=== PATIENT | male | born 1960 | race Caucasian/White ===

== ENCOUNTER 2018-04-01 11:56 | Inpatient (IN) | payer MEDICAID, OTHER ==
[~2018-04-01] VITALS: Ht 653.8 cm; Wt 77.8 kg
[~2018-04-01 11:56] MED LIST: IBUP-1984 PO; NO HOME MEDS
[2018-04-01] MEDS ORDERED: normal saline 1000ml 1,000 ML IV ONE (12:10)
[2018-04-01] MEDS ORDERED: famotidine 20mg tablet PO ONE (12:10)
[2018-04-01] MEDS ORDERED: LIDOcaine Viscous 15ml cup PO ONE (12:10)
[2018-04-01] MEDS ORDERED: ondansetron 4mg rapidly disintigrating tab PO ONE (12:10)
[2018-04-01] MEDS ORDERED: pantoprazole 40mg Tablet.DR PO ONE (12:10)
[2018-04-01] MEDS ORDERED: mag hydrox/Alum hydrox/simeth 30ml oral suspension PO ONE (12:10)
[2018-04-01 12:32] LABS: BASOPHILS % (AUTO) 0.5 % (0-1); EOSINOPHILS % (AUTO) 0.3 % (0-6); HEMATOCRIT 41.4 % (42.0-52.0); HEMOGLOBIN 14.2 g/dl (14.0-17.9); LYMPHOCYTES # (AUTO) 2.5 X10'3 (1.1-4.8); LYMPHOCYTES % (AUTO) 29.1 % (21-51); MEAN CORPUSCULAR HEMOGLOBIN 33.6 PG (27.0-31.0); MEAN CORPUSCULAR HGB CONC 34.4 % (33.0-36.5); MEAN CORPUSCULAR VOLUME 97.7 FL (78-98); MEAN PLATELET VOLUME 8.6 FL (7.4-10.4); MONOCYTES # (AUTO) 0.7 X10'3 (0-0.9); MONOCYTES % (AUTO) 8.2 % (2-12); NEUTROPHILS # (AUTO) 5.3 X10'3 (1.8-7.7); NEUTROPHILS % (AUTO) 61.9 % (42-75); PLATELET COUNT 219 X10'3 (140-440); RED BLOOD COUNT 4.23 X10'6 (4.70-6.10); RED CELL DISTRIBUTION WIDTH 14.3 % (11.5-14.5); WHITE BLOOD COUNT 8.6 X10'3 (4.5-11.0)
[2018-04-01 12:45] LABS: INR 1.1 INR; PARTIAL THROMBOPLASTIN TIME 26 SECONDS (22-32); PROTHROMBIN TIME 11.7 SECONDS (9.0-12.0)
[2018-04-01 12:50] LABS: ALANINE AMINOTRANSFERASE 71 U/L (12-78); ALBUMIN/GLOBULIN RATIO 0.9 (1.1-1.5); ALKALINE PHOSPHATASE 139 IU/L (46-116); ANION GAP 7 (8-16); ASPARTATE AMINO TRANSFERASE 47 U/L (10-37); BILIRUBIN,TOTAL 1.3 MG/DL (0.1-1.0); BLOOD UREA NITROGEN 22 MG/DL (7-18); BUN/CREATININE RATIO 17.2 (5.4-32.0); CALCIUM 8.4 MG/DL (8.5-10.1); CHLORIDE 106 MMOL/L (99-107); CREATININE 1.28 MG/DL (0.60-1.10); GLUCOSE 93 MG/DL (70-104); POTASSIUM 4.6 MMOL/L (3.5-5.1); SODIUM 139 MMOL/L (135-145); TOTAL CARBON DIOXIDE 26.2 MMOL/L (24-32); TOTAL PROTEIN 6.5 G/DL (6.4-8.2); eGFR 58 ML/MIN
[2018-04-01] MEDS ORDERED: iohexol 350MG/ML 100ml bottle IV ONE (13:48)
[2018-04-01] MEDS ORDERED: heparin 10,000 units/1 ML INJ IV ONE ×4 (14:45→15:40)
[2018-04-01] MEDS ORDERED: heparin 10,000 units/1 ML INJ IV PRN ×2 (14:45→15:20)
[2018-04-01] MEDS ORDERED: furosemide 10 MG/1 ML 10ml inj IV ONE (14:45)
[2018-04-01] MEDS ORDERED: aspirin 325mg tablet PO ONE (14:45)
[2018-04-01 15:07] LABS: C-REACTIVE PROTEIN 1.76 MG/DL (0.0-0.5)
[2018-04-01 15:15] LABS: BASOPHILS # (AUTO) 0.1 X10'3 (0-0.2); BASOPHILS % (AUTO) 0.9 % (0-1); EOSINOPHILS # (AUTO) 0.1 X10'3 (0-0.9); EOSINOPHILS % (AUTO) 0.6 % (0-6); HEMATOCRIT 42.5 % (42.0-52.0); HEMOGLOBIN 14.4 g/dl (14.0-17.9); LYMPHOCYTES # (AUTO) 2.6 X10'3 (1.1-4.8); MEAN CORPUSCULAR HEMOGLOBIN 33.4 PG (27.0-31.0); MEAN CORPUSCULAR HGB CONC 33.8 % (33.0-36.5); MEAN CORPUSCULAR VOLUME 98.7 FL (78-98); MEAN PLATELET VOLUME 8.4 FL (7.4-10.4); MONOCYTES # (AUTO) 0.7 X10'3 (0-0.9); MONOCYTES % (AUTO) 8.5 % (2-12); NEUTROPHILS # (AUTO) 4.9 X10'3 (1.8-7.7); PLATELET COUNT 212 X10'3 (140-440); RED CELL DISTRIBUTION WIDTH 14.2 % (11.5-14.5); WHITE BLOOD COUNT 8.3 X10'3 (4.5-11.0)
[2018-04-01] MEDS ORDERED: HYDROcodone/acetaminophen 5mg/325mg tablet PO PRN (15:20)
[2018-04-01] MEDS ORDERED: acetaminophen 325mg tablet PO PRN (15:20)
[2018-04-01] MEDS ORDERED: HYDROcodone/acetaminophen 10/325mg tab PO PRN (15:20)
[2018-04-01] MEDS ORDERED: bisacodyl 10mg suppository rectal RC PRN (15:20)
[2018-04-01] MEDS ORDERED: HYDROmorphone inj. 0.5 MG/0.5 ML DISP.SYRIN IV PRN ×2 (15:20)
[2018-04-01] MEDS ORDERED: diphenhydrAMINE 50 mg/ml inj IV PRN (15:20)
[2018-04-01] MEDS ORDERED: ondansetron/PF 4mg/2ml inj IV PRN (15:20)
[2018-04-01] MEDS ORDERED: morphine 4 MG/ML inj SYRINge IV PRN ×2 (15:20)
[2018-04-01] MEDS ORDERED: acetaminophen 650mg rectal suppository RC PRN (15:20)
[2018-04-01] MEDS ORDERED: metoclopramide 5 mg/ml inj IV PRN (15:20)
[2018-04-01] MEDS ORDERED: diphenhydrAMINE 25mg capsule PO PRN (15:20)
[2018-04-01] MEDS ORDERED: magnesium hydroxide 30ml (MOM) UD suspension PO PRN (15:20)
[2018-04-01] MEDS ORDERED: mag hydrox/Alum hydrox/simeth 30ml oral suspension PO PRN (15:20)
[2018-04-01] MEDS ORDERED: atenolol 25mg tablet PO SCH (15:40)
[2018-04-01] MEDS ORDERED: atorvastatin 20mg tablet PO SCH (15:40)
[2018-04-01] MEDS ORDERED: lisinopril 10 MG tablet PO SCH (15:40)
[2018-04-01 16:11] LABS: ABG BASE EXCESS -5.2 mmol/L (-2.0-3.0); ABG HCO3 17.4 mmol/L (22.0-26.0); ABG OXYGEN SATURATION 94.9 % (95-98); ABG PCO2 (T) 26.9 mmHg (35.0-48.0); ABG PH (T) 7.428 (7.350-7.450); ABG PO2 (T) 73.9 mmHg (83-108); ALLEN'S TEST Positive; FCOHb 1.1 % (0.5-1.5); FMetHb 0.3 % (0.3-1.12); FO2Hb 93.6 % (94-100); TOTAL HEMOGLOBIN 14.9 G/dl (14.0-18.0)
[2018-04-01 16:12] LABS: HEMOGLOBIN A1C 6.2 % (4.5-6.2)
[2018-04-01 16:21] LABS: LIPASE 71 U/L (73-393); PHOSPHORUS 3.2 MG/DL (2.3-4.5)
[2018-04-01 17:03] LABS: MAGNESIUM 1.8 MG/DL (1.5-2.4)
[2018-04-01] MEDS: normal saline 1000ml 1,000 ML IV SCH (17:41)
[2018-04-01 17:47] VITALS: BP 115/77
[2018-04-01 19:00] VITALS: BP 103/51
[2018-04-01] MEDS: docusate sod 100mg capsule PO SCH (20:00)
[2018-04-01 21:29] LABS: CLARITY,URINE CLEAR (Clear); COLOR,URINE AMBER (Yellow); GLUCOSE, URINE NEGATIVE (Neg); KETONES,URINE NEGATIVE (Neg); LEUKOCYTE ESTERASE ,URINE NEGATIVE (Neg); NITRITES, URINE NEGATIVE (Neg); OCCULT BLOOD,URINE NEGATIVE (Neg); PROTEIN,URINE NEGATIVE (Neg)
[2018-04-01 21:34] LABS: UA COLLECTION TYPE CLN CATCH MIDSTREAM
[2018-04-01 23:00] VITALS: BP 102/74
[2018-04-02] VITALS (9 sets, daily range): BP systolic 86–118; BP diastolic 57–78
[2018-04-02] MEDS: temazepam 15mg capsule PO PRN (00:28)
[2018-04-02 01:12] LABS: ALANINE AMINOTRANSFERASE 196 U/L (12-78); ALBUMIN 2.8 G/DL (3.4-5.0); ALBUMIN/GLOBULIN RATIO 0.9 (1.1-1.5); ALKALINE PHOSPHATASE 155 IU/L (46-116); ANION GAP 9 (8-16); ASPARTATE AMINO TRANSFERASE 204 U/L (10-37); BILIRUBIN,TOTAL 1.9 MG/DL (0.1-1.0); BLOOD UREA NITROGEN 26 MG/DL (7-18); BUN/CREATININE RATIO 17.6 (5.4-32.0); CALCIUM 8.2 MG/DL (8.5-10.1); CHLORIDE 103 MMOL/L (99-107); CREATININE 1.48 MG/DL (0.60-1.10); GLUCOSE 118 MG/DL (70-104); POTASSIUM 4.9 MMOL/L (3.5-5.1); SODIUM 134 MMOL/L (135-145); TOTAL CARBON DIOXIDE 22.4 MMOL/L (24-32); TOTAL PROTEIN 5.9 G/DL (6.4-8.2); eGFR 49 ML/MIN
[2018-04-02 01:15] LABS: CHOL/HDL RATIO 2.9 (0.00-4.99); CHOLESTEROL 101 MG/DL (0-200); HDL CHOLESTEROL 35 MG/DL (35-60); LDL CHOLESTEROL 60 MG/DL (50-100); TRIGLYCERIDES 42 MG/DL (20-135)
[2018-04-02 01:51] LABS: URINE AMPHETAMINE SCREEN POSITIVE (Neg); URINE BARBITUATE SCREEN NEGATIVE (Neg); URINE BENZODIAZEPINES SCREEN NEGATIVE (Neg); URINE CANNABINOID SCREEN POSITIVE (Neg); URINE COCAINE SCREEN NEGATIVE (Neg); URINE METHADONE SCREEN NEGATIVE (Neg); URINE OPIATE SCREEN NEGATIVE (Neg); URINE PHENCYCLIDINE SCREEN NEGATIVE (Neg)
[2018-04-02 04:17] LABS: BASOPHILS # (AUTO) 0.2 X10'3 (0-0.2); BASOPHILS % (AUTO) 1.8 % (0-1); EOSINOPHILS # (AUTO) 0.1 X10'3 (0-0.9); EOSINOPHILS % (AUTO) 0.5 % (0-6); HEMATOCRIT 46.5 % (42.0-52.0); HEMOGLOBIN 15.7 g/dl (14.0-17.9); LYMPHOCYTES # (AUTO) 3.1 X10'3 (1.1-4.8); LYMPHOCYTES % (AUTO) 30.9 % (21-51); MEAN CORPUSCULAR HEMOGLOBIN 33.5 PG (27.0-31.0); MEAN CORPUSCULAR HGB CONC 33.8 % (33.0-36.5); MEAN CORPUSCULAR VOLUME 98.9 FL (78-98); MONOCYTES % (AUTO) 9.5 % (2-12); NEUTROPHILS # (AUTO) 5.8 X10'3 (1.8-7.7); NEUTROPHILS % (AUTO) 57.3 % (42-75); PLATELET COUNT 227 X10'3 (140-440); RED CELL DISTRIBUTION WIDTH 14.6 % (11.5-14.5); WHITE BLOOD COUNT 10.2 X10'3 (4.5-11.0)
[2018-04-02] MEDS: docusate sod 100mg capsule PO SCH (07:39)
[2018-04-02] MEDS: carVEDilol 3.125mg tablet PO SCH ×2 (07:39→20:00)
[2018-04-02] MEDS: pantoprazole 40 MG vial IV SCH (07:40)
[2018-04-02] MEDS: aspirin 81mg tab.chew PO SCH (07:52)
[2018-04-02] MEDS ORDERED: furosemide 40mg/4ml inj IV SCH (08:00)
[2018-04-02 08:21] LABS: MAGNESIUM 1.9 MG/DL (1.5-2.4)
[2018-04-02] MEDS ORDERED: magnesium 4gm in 100ml NS 100 ML IV ONE (09:55)
[2018-04-02] MEDS: amiodarone 200mg tablet PO SCH ×2 (10:00→20:35)
[2018-04-02] MEDS: furosemide 20 MG/2 ML vial IV SCH (20:00)
[2018-04-02] MEDS: lisinopril 2.5mg tablet PO SCH (20:47)
[2018-04-03] VITALS (11 sets, daily range): BP systolic 90–156; BP diastolic 63–87
[2018-04-03 04:31] LABS: BASOPHILS % (AUTO) 0.5 % (0-1); EOSINOPHILS # (AUTO) 0.1 X10'3 (0-0.9); HEMATOCRIT 44.4 % (42.0-52.0); HEMOGLOBIN 15.1 g/dl (14.0-17.9); LYMPHOCYTES # (AUTO) 2.6 X10'3 (1.1-4.8); MEAN CORPUSCULAR HEMOGLOBIN 33.4 PG (27.0-31.0); MEAN CORPUSCULAR HGB CONC 33.9 % (33.0-36.5); MEAN CORPUSCULAR VOLUME 98.4 FL (78-98); MEAN PLATELET VOLUME 9.1 FL (7.4-10.4); MONOCYTES # (AUTO) 0.9 X10'3 (0-0.9); MONOCYTES % (AUTO) 8.4 % (2-12); NEUTROPHILS # (AUTO) 6.6 X10'3 (1.8-7.7); NEUTROPHILS % (AUTO) 65.1 % (42-75); PLATELET COUNT 213 X10'3 (140-440); RED BLOOD COUNT 4.52 X10'6 (4.70-6.10); RED CELL DISTRIBUTION WIDTH 14.5 % (11.5-14.5); WHITE BLOOD COUNT 10.2 X10'3 (4.5-11.0)
[2018-04-03 04:55] LABS: ALANINE AMINOTRANSFERASE 662 U/L (12-78); ALKALINE PHOSPHATASE 164 IU/L (46-116); ANION GAP 11 (8-16); ASPARTATE AMINO TRANSFERASE 628 U/L (10-37); BILIRUBIN,TOTAL 1.4 MG/DL (0.1-1.0); BLOOD UREA NITROGEN 35 MG/DL (7-18); BUN/CREATININE RATIO 20.3 (5.4-32.0); CALCIUM 8.5 MG/DL (8.5-10.1); CHLORIDE 103 MMOL/L (99-107); CREATININE 1.72 MG/DL (0.60-1.10); GLUCOSE 114 MG/DL (70-104); MAGNESIUM 2.2 MG/DL (1.5-2.4); POTASSIUM 4.6 MMOL/L (3.5-5.1); SODIUM 137 MMOL/L (135-145); TOTAL CARBON DIOXIDE 23.2 MMOL/L (24-32); TROPONIN I 0.11 NG/ML (0.0-0.05); eGFR 41 ML/MIN
[2018-04-03] MEDS: pantoprazole 40 MG vial IV SCH (07:52)
[2018-04-03] MEDS: carVEDilol 3.125mg tablet PO SCH ×2 (07:58→20:00)
[2018-04-03] MEDS: amiodarone 200mg tablet PO SCH ×2 (07:58→21:00)
[2018-04-03] MEDS: aspirin 81mg tab.chew PO SCH (07:58)
[2018-04-03] MEDS: furosemide 20 MG/2 ML vial IV SCH ×2 (08:00→16:21)
[2018-04-03] MEDS ORDERED: HYDROmorphone 1 mg/ml syringe IV PRN (08:10)
[2018-04-03] MEDS ORDERED: naproxen sodium 220mg tablet PO PRN (08:10)
[2018-04-03] MEDS: normal saline 1000ml 1,000 ML IV SCH (15:18)
[2018-04-03] MEDS ORDERED: ipratropium/albuterol 3ml nebule NEB PRN (15:30)
[2018-04-03] MEDS: CefTRIAXone/D5W-Rocephin 1gm 50 ML IV SCH (16:18)
[2018-04-03] MEDS: LORazepam 0.5 MG tablet PO PRN (16:26)
[2018-04-03] MEDS: ipratropium/albuterol 3ml nebule NEB SCH ×2 (19:56→23:00)
[2018-04-03] MEDS: apixaban 5mg tablet PO SCH (21:00)
[2018-04-03] MEDS: lisinopril 2.5mg tablet PO SCH (21:00)
[2018-04-04] VITALS (7 sets, daily range): BP systolic 92–113; BP diastolic 56–76
[2018-04-04 06:19] LABS: BASOPHILS # (AUTO) 0.1 X10'3 (0-0.2); BASOPHILS % (AUTO) 0.5 % (0-1); EOSINOPHILS # (AUTO) 0.2 X10'3 (0-0.9); EOSINOPHILS % (AUTO) 1.6 % (0-6); HEMATOCRIT 42.4 % (42.0-52.0); HEMOGLOBIN 14.3 g/dl (14.0-17.9); LYMPHOCYTES # (AUTO) 2.7 X10'3 (1.1-4.8); MEAN CORPUSCULAR HEMOGLOBIN 33.3 PG (27.0-31.0); MEAN CORPUSCULAR HGB CONC 33.6 % (33.0-36.5); MEAN PLATELET VOLUME 9.1 FL (7.4-10.4); MONOCYTES # (AUTO) 1.1 X10'3 (0-0.9); MONOCYTES % (AUTO) 10.7 % (2-12); NEUTROPHILS # (AUTO) 6.3 X10'3 (1.8-7.7); NEUTROPHILS % (AUTO) 61.2 % (42-75); PLATELET COUNT 206 X10'3 (140-440); RED BLOOD COUNT 4.28 X10'6 (4.70-6.10); RED CELL DISTRIBUTION WIDTH 14.3 % (11.5-14.5); WHITE BLOOD COUNT 10.2 X10'3 (4.5-11.0)
[2018-04-04 06:40] LABS: ALANINE AMINOTRANSFERASE 485 U/L (12-78); ALBUMIN 2.7 G/DL (3.4-5.0); ALBUMIN/GLOBULIN RATIO 0.9 (1.1-1.5); ALKALINE PHOSPHATASE 168 IU/L (46-116); ANION GAP 10 (8-16); ASPARTATE AMINO TRANSFERASE 257 U/L (10-37); BILIRUBIN,TOTAL 0.9 MG/DL (0.1-1.0); BLOOD UREA NITROGEN 36 MG/DL (7-18); CALCIUM 8.1 MG/DL (8.5-10.1); CHLORIDE 102 MMOL/L (99-107); CREATININE 1.89 MG/DL (0.60-1.10); GLUCOSE 139 MG/DL (70-104); POTASSIUM 4.4 MMOL/L (3.5-5.1); SODIUM 137 MMOL/L (135-145); TOTAL CARBON DIOXIDE 25.5 MMOL/L (24-32); TOTAL PROTEIN 5.7 G/DL (6.4-8.2); eGFR 37 ML/MIN
[2018-04-04] MEDS: ipratropium/albuterol 3ml nebule NEB SCH ×6 (07:01→23:00)
[2018-04-04 07:41] LABS: HBSAG SCREEN Negative (Negative); HEP A AB, IGM Negative (Negative); HEP B CORE AB, IGM Negative (Negative); HEPATITIS C ANTIBODY <0.1 s/co ratio (0.0-0.9)
[2018-04-04] MEDS: carVEDilol 3.125mg tablet PO SCH (08:00)
[2018-04-04] MEDS: furosemide 20 MG/2 ML vial IV SCH ×2 (08:07→21:26)
[2018-04-04] MEDS: CefTRIAXone/D5W-Rocephin 1gm 50 ML IV SCH (08:07)
[2018-04-04] MEDS: apixaban 5mg tablet PO SCH ×2 (08:07→21:25)
[2018-04-04] MEDS: pantoprazole 40mg Tablet.DR PO SCH (08:07)
[2018-04-04] MEDS: amiodarone 200mg tablet PO SCH ×2 (08:07→21:22)
[2018-04-04] MEDS: aspirin 81mg tab.chew PO SCH (08:07)
[2018-04-04] MEDS: lactobacillus rhamnosus 10,000 MMU CELLS/CAPSULE PO SCH (21:25)
[2018-04-05] VITALS (8 sets, daily range): BP systolic 87–142; BP diastolic 52–76
[2018-04-05 06:00] LABS: BASOPHILS # (AUTO) 0.1 X10'3 (0-0.2); BASOPHILS % (AUTO) 1.2 % (0-1); EOSINOPHILS # (AUTO) 0.1 X10'3 (0-0.9); EOSINOPHILS % (AUTO) 1.4 % (0-6); HEMOGLOBIN 14.5 g/dl (14.0-17.9); LYMPHOCYTES # (AUTO) 2.3 X10'3 (1.1-4.8); LYMPHOCYTES % (AUTO) 26.6 % (21-51); MEAN CORPUSCULAR HEMOGLOBIN 33.2 PG (27.0-31.0); MEAN CORPUSCULAR HGB CONC 33.7 % (33.0-36.5); MEAN CORPUSCULAR VOLUME 98.6 FL (78-98); MEAN PLATELET VOLUME 9.2 FL (7.4-10.4); MONOCYTES # (AUTO) 0.8 X10'3 (0-0.9); NEUTROPHILS # (AUTO) 5.1 X10'3 (1.8-7.7); NEUTROPHILS % (AUTO) 60.8 % (42-75); PLATELET COUNT 169 X10'3 (140-440); RED BLOOD COUNT 4.36 X10'6 (4.70-6.10); RED CELL DISTRIBUTION WIDTH 14.6 % (11.5-14.5); WHITE BLOOD COUNT 8.5 X10'3 (4.5-11.0)
[2018-04-05 06:24] LABS: ALANINE AMINOTRANSFERASE 608 U/L (12-78); ALKALINE PHOSPHATASE 311 IU/L (46-116); ANION GAP 11 (8-16); ASPARTATE AMINO TRANSFERASE 363 U/L (10-37); BILIRUBIN,TOTAL 0.9 MG/DL (0.1-1.0); BLOOD UREA NITROGEN 36 MG/DL (7-18); BUN/CREATININE RATIO 21.1 (5.4-32.0); CALCIUM 8.3 MG/DL (8.5-10.1); CHLORIDE 101 MMOL/L (99-107); CREATININE 1.71 MG/DL (0.60-1.10); GLUCOSE 90 MG/DL (70-104); POTASSIUM 3.8 MMOL/L (3.5-5.1); SODIUM 138 MMOL/L (135-145); TOTAL CARBON DIOXIDE 26.2 MMOL/L (24-32); eGFR 41 ML/MIN
[2018-04-05] MEDS: ipratropium/albuterol 3ml nebule NEB SCH ×5 (07:00→23:00)
[2018-04-05] MEDS: lactobacillus rhamnosus 10,000 MMU CELLS/CAPSULE PO SCH ×2 (08:18→18:57)
[2018-04-05] MEDS: amiodarone 200mg tablet PO SCH ×2 (08:18→18:57)
[2018-04-05] MEDS: carVEDilol 3.125mg tablet PO SCH (08:18)
[2018-04-05] MEDS: aspirin 81mg tab.chew PO SCH (08:18)
[2018-04-05] MEDS: pantoprazole 40mg Tablet.DR PO SCH (08:18)
[2018-04-05] MEDS: apixaban 5mg tablet PO SCH ×2 (08:18→18:57)
[2018-04-05] MEDS: furosemide 20 MG/2 ML vial IV SCH ×2 (08:18→20:00)
[2018-04-06 03:22] VITALS: BP 104/50
[2018-04-06 05:46] LABS: BASOPHILS % (AUTO) 0.2 % (0-1); EOSINOPHILS # (AUTO) 0.1 X10'3 (0-0.9); HEMATOCRIT 40.1 % (42.0-52.0); HEMOGLOBIN 13.5 g/dl (14.0-17.9); LYMPHOCYTES # (AUTO) 2.3 X10'3 (1.1-4.8); LYMPHOCYTES % (AUTO) 25.2 % (21-51); MEAN CORPUSCULAR HEMOGLOBIN 33.3 PG (27.0-31.0); MEAN CORPUSCULAR HGB CONC 33.6 % (33.0-36.5); MEAN CORPUSCULAR VOLUME 99.1 FL (78-98); MONOCYTES % (AUTO) 10.5 % (2-12); NEUTROPHILS # (AUTO) 5.8 X10'3 (1.8-7.7); NEUTROPHILS % (AUTO) 63.1 % (42-75); PLATELET COUNT 183 X10'3 (140-440); RED BLOOD COUNT 4.04 X10'6 (4.70-6.10); RED CELL DISTRIBUTION WIDTH 14.9 % (11.5-14.5); WHITE BLOOD COUNT 9.2 X10'3 (4.5-11.0)
[2018-04-06 06:00] VITALS: BP 101/70
[2018-04-06 06:03] LABS: ALANINE AMINOTRANSFERASE 624 U/L (12-78); ALBUMIN 2.8 G/DL (3.4-5.0); ALKALINE PHOSPHATASE 323 IU/L (46-116); ANION GAP 9 (8-16); ASPARTATE AMINO TRANSFERASE 386 U/L (10-37); BILIRUBIN,TOTAL 1.3 MG/DL (0.1-1.0); BLOOD UREA NITROGEN 40 MG/DL (7-18); BUN/CREATININE RATIO 24.4 (5.4-32.0); CALCIUM 8.4 MG/DL (8.5-10.1); CHLORIDE 101 MMOL/L (99-107); CREATININE 1.64 MG/DL (0.60-1.10); GLUCOSE 100 MG/DL (70-104); POTASSIUM 4.1 MMOL/L (3.5-5.1); SODIUM 136 MMOL/L (135-145); TOTAL PROTEIN 5.7 G/DL (6.4-8.2); eGFR 43 ML/MIN
[2018-04-06] MEDS: ipratropium/albuterol 3ml nebule NEB SCH ×5 (07:00→23:04)
[2018-04-06] MEDS: carVEDilol 3.125mg tablet PO SCH (08:37)
[2018-04-06] MEDS: lactobacillus rhamnosus 10,000 MMU CELLS/CAPSULE PO SCH ×2 (08:37→19:33)
[2018-04-06] MEDS: apixaban 5mg tablet PO SCH ×2 (08:37→19:33)
[2018-04-06] MEDS: furosemide 20 MG/2 ML vial IV SCH ×2 (08:37→19:33)
[2018-04-06] MEDS: pantoprazole 40mg Tablet.DR PO SCH (08:38)
[2018-04-06] MEDS: aspirin 81mg tab.chew PO SCH (08:38)
[2018-04-06] MEDS: amiodarone 200mg tablet PO SCH ×2 (08:38→19:33)
[2018-04-06 11:00] VITALS: BP 84/60
[2018-04-06] MEDS: LORazepam 0.5 MG tablet PO PRN (12:04)
[2018-04-06] MEDS: docusate sod 100mg capsule PO SCH ×2 (12:04→19:33)
[2018-04-06 15:00] VITALS: BP 87/66
[2018-04-06 19:00] VITALS: BP 98/67
[2018-04-06] MEDS: polyethylene glycol 3350 17gm powd pack PO SCH (19:35)
[2018-04-06] MEDS: temazepam 15mg capsule PO PRN (21:52)
[2018-04-06 23:00] VITALS: BP 93/64
[2018-04-07] MEDS: ipratropium/albuterol 3ml nebule NEB SCH ×4 (03:41→20:37)
[2018-04-07 04:36] VITALS: BP 91/64
[2018-04-07 06:00] VITALS: BP 93/64
[2018-04-07] MEDS: docusate sod 100mg capsule PO SCH ×2 (07:52→19:29)
[2018-04-07] MEDS: aspirin 81mg tab.chew PO SCH (07:52)
[2018-04-07] MEDS: lactobacillus rhamnosus 10,000 MMU CELLS/CAPSULE PO SCH ×2 (07:53→19:29)
[2018-04-07] MEDS: apixaban 5mg tablet PO SCH ×2 (07:53→19:30)
[2018-04-07] MEDS: pantoprazole 40mg Tablet.DR PO SCH (07:53)
[2018-04-07] MEDS: carVEDilol 3.125mg tablet PO SCH (07:54)
[2018-04-07] MEDS: amiodarone 200mg tablet PO SCH ×2 (07:54→19:29)
[2018-04-07] MEDS: furosemide 20 MG/2 ML vial IV SCH ×2 (07:59→19:30)
[2018-04-07 11:00] VITALS: BP 98/65
[2018-04-07 15:00] VITALS: BP 95/67
[2018-04-07 19:00] VITALS: BP 91/62
[2018-04-07] MEDS: polyethylene glycol 3350 17gm powd pack PO SCH (19:30)
[2018-04-07] MEDS: temazepam 15mg capsule PO PRN (21:51)
[2018-04-07 23:00] VITALS: BP 92/62
[2018-04-08] MEDS: ipratropium/albuterol 3ml nebule NEB SCH ×5 (00:14→19:25)
[2018-04-08 03:01] VITALS: BP 92/65
[2018-04-08 06:00] VITALS: BP 91/60
[2018-04-08 06:09] LABS: BASOPHILS % (AUTO) 0.5 % (0-1); EOSINOPHILS % (AUTO) 0.5 % (0-6); HEMATOCRIT 40.7 % (42.0-52.0); HEMOGLOBIN 13.7 g/dl (14.0-17.9); LYMPHOCYTES # (AUTO) 2.6 X10'3 (1.1-4.8); LYMPHOCYTES % (AUTO) 28.7 % (21-51); MEAN CORPUSCULAR HEMOGLOBIN 32.8 PG (27.0-31.0); MEAN CORPUSCULAR HGB CONC 33.6 % (33.0-36.5); MEAN CORPUSCULAR VOLUME 97.8 FL (78-98); MEAN PLATELET VOLUME 9.9 FL (7.4-10.4); MONOCYTES % (AUTO) 11.2 % (2-12); NEUTROPHILS # (AUTO) 5.4 X10'3 (1.8-7.7); NEUTROPHILS % (AUTO) 59.1 % (42-75); PLATELET COUNT 166 X10'3 (140-440); RED BLOOD COUNT 4.16 X10'6 (4.70-6.10); RED CELL DISTRIBUTION WIDTH 14.7 % (11.5-14.5); WHITE BLOOD COUNT 9.2 X10'3 (4.5-11.0)
[2018-04-08 06:24] LABS: ALANINE AMINOTRANSFERASE 713 U/L (12-78); ALBUMIN 2.8 G/DL (3.4-5.0); ALKALINE PHOSPHATASE 467 IU/L (46-116); ANION GAP 9 (8-16); ASPARTATE AMINO TRANSFERASE 524 U/L (10-37); BILIRUBIN,TOTAL 1.7 MG/DL (0.1-1.0); BLOOD UREA NITROGEN 43 MG/DL (7-18); BUN/CREATININE RATIO 25.1 (5.4-32.0); CALCIUM 8.6 MG/DL (8.5-10.1); CHLORIDE 100 MMOL/L (99-107); CREATININE 1.71 MG/DL (0.60-1.10); GLUCOSE 90 MG/DL (70-104); POTASSIUM 4.1 MMOL/L (3.5-5.1); SODIUM 136 MMOL/L (135-145); TOTAL CARBON DIOXIDE 27.3 MMOL/L (24-32); TOTAL PROTEIN 5.6 G/DL (6.4-8.2); eGFR 41 ML/MIN
[2018-04-08] MEDS: pantoprazole 40mg Tablet.DR PO SCH (07:30)
[2018-04-08] MEDS: furosemide 20 MG/2 ML vial IV SCH ×2 (08:33→20:30)
[2018-04-08] MEDS: lactobacillus rhamnosus 10,000 MMU CELLS/CAPSULE PO SCH ×2 (08:34→20:30)
[2018-04-08] MEDS: apixaban 5mg tablet PO SCH ×2 (08:34→20:30)
[2018-04-08] MEDS: aspirin 81mg tab.chew PO SCH (08:34)
[2018-04-08] MEDS: docusate sod 100mg capsule PO SCH ×2 (08:34→20:30)
[2018-04-08] MEDS: amiodarone 200mg tablet PO SCH (08:41)
[2018-04-08] MEDS: carVEDilol 3.125mg tablet PO SCH (08:41)
[2018-04-08 11:00] VITALS: BP 101/78
[2018-04-08 15:00] VITALS: BP 95/51
[2018-04-08 19:00] VITALS: BP 153/115
[2018-04-08] MEDS: temazepam 15mg capsule PO PRN (20:30)
[2018-04-08] MEDS: polyethylene glycol 3350 17gm powd pack PO SCH (20:32)
[2018-04-08 23:00] VITALS: BP 97/73
[2018-04-09 03:00] VITALS: BP 94/67
[2018-04-09 05:04] LABS: BASOPHILS % (AUTO) 0.4 % (0-1); EOSINOPHILS # (AUTO) 0.1 X10'3 (0-0.9); EOSINOPHILS % (AUTO) 0.8 % (0-6); HEMATOCRIT 39.5 % (42.0-52.0); HEMOGLOBIN 13.4 g/dl (14.0-17.9); LYMPHOCYTES # (AUTO) 2.4 X10'3 (1.1-4.8); LYMPHOCYTES % (AUTO) 28.7 % (21-51); MEAN CORPUSCULAR HEMOGLOBIN 33.2 PG (27.0-31.0); MEAN CORPUSCULAR HGB CONC 33.8 % (33.0-36.5); MEAN CORPUSCULAR VOLUME 98.4 FL (78-98); MEAN PLATELET VOLUME 9.6 FL (7.4-10.4); MONOCYTES # (AUTO) 0.8 X10'3 (0-0.9); MONOCYTES % (AUTO) 9.3 % (2-12); NEUTROPHILS % (AUTO) 60.8 % (42-75); PLATELET COUNT 163 X10'3 (140-440); RED BLOOD COUNT 4.02 X10'6 (4.70-6.10); WHITE BLOOD COUNT 8.2 X10'3 (4.5-11.0)
[2018-04-09 05:26] LABS: ALBUMIN 2.7 G/DL (3.4-5.0); ANION GAP 7 (8-16); BLOOD UREA NITROGEN 47 MG/DL (7-18); BUN/CREATININE RATIO 26.3 (5.4-32.0); CALCIUM 8.4 MG/DL (8.5-10.1); CHLORIDE 100 MMOL/L (99-107); CREATININE 1.79 MG/DL (0.60-1.10); GLUCOSE 94 MG/DL (70-104); POTASSIUM 3.7 MMOL/L (3.5-5.1); SODIUM 137 MMOL/L (135-145); TOTAL CARBON DIOXIDE 29.9 MMOL/L (24-32); eGFR 39 ML/MIN
[2018-04-09 06:00] VITALS: BP 101/78
[2018-04-09] MEDS: ipratropium/albuterol 3ml nebule NEB SCH ×5 (06:48→23:40)
[2018-04-09] MEDS: docusate sod 100mg capsule PO SCH ×2 (07:58→21:01)
[2018-04-09] MEDS: lactobacillus rhamnosus 10,000 MMU CELLS/CAPSULE PO SCH ×2 (07:58→21:01)
[2018-04-09] MEDS: apixaban 5mg tablet PO SCH ×2 (07:58→21:01)
[2018-04-09] MEDS: pantoprazole 40mg Tablet.DR PO SCH (07:58)
[2018-04-09] MEDS: amiodarone 200mg tablet PO SCH (07:58)
[2018-04-09] MEDS: aspirin 81mg tab.chew PO SCH (07:58)
[2018-04-09] MEDS: furosemide 20 MG/2 ML vial IV SCH ×2 (07:59→21:01)
[2018-04-09] MEDS: carVEDilol 3.125mg tablet PO SCH (07:59)
[2018-04-09 11:00] VITALS: BP 102/78
[2018-04-09 15:00] VITALS: BP 98/66
[2018-04-09 18:00] VITALS: BP 105/75
[2018-04-09] MEDS: polyethylene glycol 3350 17gm powd pack PO SCH (21:00)
[2018-04-09] MEDS: temazepam 15mg capsule PO PRN (21:01)
[2018-04-09 22:00] VITALS: BP 96/62
[2018-04-10 02:00] VITALS: BP 92/57
[2018-04-10 05:54] LABS: ALANINE AMINOTRANSFERASE 484 U/L (12-78); ALBUMIN 2.6 G/DL (3.4-5.0); ALKALINE PHOSPHATASE 430 IU/L (46-116); ANION GAP 6 (8-16); ASPARTATE AMINO TRANSFERASE 215 U/L (10-37); BILIRUBIN,TOTAL 1.1 MG/DL (0.1-1.0); BLOOD UREA NITROGEN 39 MG/DL (7-18); BUN/CREATININE RATIO 25.2 (5.4-32.0); CALCIUM 8.1 MG/DL (8.5-10.1); CHLORIDE 100 MMOL/L (99-107); CREATININE 1.55 MG/DL (0.60-1.10); GLUCOSE 108 MG/DL (70-104); SODIUM 136 MMOL/L (135-145); TOTAL CARBON DIOXIDE 29.7 MMOL/L (24-32); TOTAL PROTEIN 5.3 G/DL (6.4-8.2); eGFR 46 ML/MIN
[2018-04-10 06:00] VITALS: BP 96/58
[2018-04-10] MEDS: pantoprazole 40mg Tablet.DR PO SCH (07:25)
[2018-04-10] MEDS: amiodarone 200mg tablet PO SCH (07:25)
[2018-04-10] MEDS: apixaban 5mg tablet PO SCH (07:25)
[2018-04-10] MEDS: docusate sod 100mg capsule PO SCH (07:26)
[2018-04-10] MEDS: furosemide 20 MG/2 ML vial IV SCH (07:26)
[2018-04-10] MEDS: lactobacillus rhamnosus 10,000 MMU CELLS/CAPSULE PO SCH (07:26)
[2018-04-10] MEDS: carVEDilol 3.125mg tablet PO SCH (07:27)
[2018-04-10] MEDS: ipratropium/albuterol 3ml nebule NEB SCH ×2 (08:09→11:00)
[2018-04-10] MEDS ORDERED: potassium Cl 20 mEq SR tablet PO PRN ×2 (08:50)
[2018-04-10] MEDS: aspirin 81mg tab.chew PO SCH (09:09)
[2018-04-10 11:00] VITALS: BP 104/77
[2018-04-10] MEDS ORDERED: COR3.125T PO (11:07)
[2018-04-10] MEDS ORDERED: APIX5TAB3 PO (11:07)
[2018-04-10] MEDS ORDERED: FURO-149 PO (11:07)
[2018-04-10] MEDS ORDERED: ASPI-1265 PO (11:07)
[2018-04-10] MEDS ORDERED: POTA20TA19 PO (11:07)
[2018-04-10] MEDS ORDERED: AMIO200T40 PO (11:07)
[2018-04-10] MEDS ORDERED: LISI2.5T2 PO (11:08)
== END 2018-04-10 12:41 | disposition home or self-care (01) | DRG 812 ==
LOC: ER 11:57 → ED HOLD 15:18 → PCU 3S 17:15
PROVIDERS: ADMIT Family Medicine; ATTEND Family Medicine
PROC: B3201ZZ Computerized Tomography (CT Scan) of Thoracic Aorta using Low Osmolar Contrast (ICD-10-PCS; principal; 2018-04-01)
DX: T43.621A Poisoning by amphetamines, accidental (unintentional), initial encounter (principal); I26.99 Other pulmonary embolism without acute cor pulmonale; J96.00 Acute respiratory failure, unspecified whether with hypoxia or hypercapnia; I50.43 Acute on chronic combined systolic (congestive) and diastolic (congestive) heart failure; G93.40 Encephalopathy, unspecified; I47.2 Ventricular tachycardia; R18.8 Other ascites; I42.7 Cardiomyopathy due to drug and external agent; N17.9 Acute kidney failure, unspecified; I82.491 Acute embolism and thrombosis of other specified deep vein of right lower extremity; E87.1 Hypo-osmolality and hyponatremia; E86.0 Dehydration; I13.0 Hypertensive heart and chronic kidney disease with heart failure and stage 1 through stage 4 chronic kidney disease, or unspecified chronic kidney disease; F17.210 Nicotine dependence, cigarettes, uncomplicated; I49.3 Ventricular premature depolarization; K73.9 Chronic hepatitis, unspecified; K74.60 Unspecified cirrhosis of liver; N18.9 Chronic kidney disease, unspecified; R74.0 Nonspecific elevation of levels of transaminase and lactic acid dehydrogenase [LDH]; R79.89 Other specified abnormal findings of blood chemistry; Z79.899 Other long term (current) drug therapy; Z71.51 Drug abuse counseling and surveillance of drug abuser; Z71.6 Tobacco abuse counseling; Y92.89 Other specified places as the place of occurrence of the external cause
CPT/HCPCS: 36415; 36600; 71045; 71275; 76700; 80048; 80053; 80061; 80074; 80305; 81003; 81479; 82607; 82746; 82803; 83036; 83690; 83735; 83880; 83891; 83894; 83898; 84100; 84443; 84484; 85018; 85025; 85610; 85651; 85730; 86140; 86147; 87070; 93005; 93306; 93970; 94640; 94760; 96361; 96374; 97116; 97162; 97530; 99291; C9113; J0696; J1644; J1940; J2405; J3475; J7030; Q0163; Q9967

== ENCOUNTER 2018-04-21 13:38 | Emergency (ER) | payer MEDICAID ==
[~2018-04-21] VITALS: Ht 185.4 cm; Wt 86.0 kg
[~2018-04-21 13:38] MED LIST changes: +AMIO200T40 PO; +APIX5TAB3 PO; +ASPI-1265 PO; +COR3.125T PO; +FURO-149 PO; -IBUP-1984 PO; +LISI2.5T2 PO; -NO HOME MEDS; +POTA20TA19 PO
[2018-04-21 14:20] LABS: BASOPHILS # (AUTO) 0.1 X10'3 (0-0.2); BASOPHILS % (AUTO) 0.8 % (0-1); EOSINOPHILS # (AUTO) 0.1 X10'3 (0-0.9); HEMATOCRIT 41.5 % (42.0-52.0); HEMOGLOBIN 13.8 g/dl (14.0-17.9); LYMPHOCYTES # (AUTO) 1.9 X10'3 (1.1-4.8); LYMPHOCYTES % (AUTO) 24.5 % (21-51); MEAN CORPUSCULAR HGB CONC 33.2 % (33.0-36.5); MEAN CORPUSCULAR VOLUME 99.3 FL (78-98); MEAN PLATELET VOLUME 8.6 FL (7.4-10.4); MONOCYTES # (AUTO) 0.6 X10'3 (0-0.9); MONOCYTES % (AUTO) 8.2 % (2-12); NEUTROPHILS # (AUTO) 5.1 X10'3 (1.8-7.7); NEUTROPHILS % (AUTO) 65.5 % (42-75); PLATELET COUNT 246 X10'3 (140-440); RED BLOOD COUNT 4.18 X10'6 (4.70-6.10); RED CELL DISTRIBUTION WIDTH 15.6 % (11.5-14.5); WHITE BLOOD COUNT 7.8 X10'3 (4.5-11.0)
[2018-04-21 14:31] LABS: INR 1.2 INR; PARTIAL THROMBOPLASTIN TIME 25 SECONDS (22-32); PROTHROMBIN TIME 12.4 SECONDS (9.0-12.0)
[2018-04-21] MEDS ORDERED: furosemide 20MG tablet PO ONE (14:45)
[2018-04-21] MEDS ORDERED: FURO-149 PO (15:03)
[2018-04-21] MEDS ORDERED: LISI2.5T2 PO (15:03)
[2018-04-21] MEDS ORDERED: AMIO200T40 PO (15:03)
[2018-04-21] MEDS ORDERED: CARV3.122 PO (15:03)
[2018-04-21] MEDS ORDERED: POTA20TA19 PO (15:03)
[2018-04-21] MEDS ORDERED: ASPI81TA52 PO (15:03)
[2018-04-21] MEDS ORDERED: APIX5TAB3 PO (15:03)
[2018-04-21 15:40] VITALS: BP 94/57
[2018-04-30] MEDS ORDERED: NYST30CR2 TP (10:41)
== END 2018-04-21 15:51 | disposition home or self-care (01) ==
LOC: ER 13:39
DX: R07.89 Other chest pain (principal); R45.1 Restlessness and agitation; J44.9 Chronic obstructive pulmonary disease, unspecified; F17.200 Nicotine dependence, unspecified, uncomplicated; Z79.899 Other long term (current) drug therapy; Z79.82 Long term (current) use of aspirin; Z98.890 Other specified postprocedural states; Z86.718 Personal history of other venous thrombosis and embolism
CPT/HCPCS: 36415; 71045; 84484; 85025; 85610; 85730; 93005; 99285

== ENCOUNTER 2018-05-23 06:44 | Inpatient (IN) | payer MEDICAID ==
[~2018-05-23] VITALS: Ht 188 cm; Wt 85.0 kg
[~2018-05-23 06:44] MED LIST changes: -ASPI-1265 PO; +ASPI81TA52 PO; +FOLI1TAB16 PO; -FURO-149 PO; +FURO20TA4 PO; -LISI2.5T2 PO; +LISI2.5T89 PO; +POTA-82 PO; -POTA20TA19 PO; +RISP0.5T3 PO
[2018-05-23] MEDS ORDERED: aspirin 81mg tab.chew PO ONE (06:50)
[2018-05-23] MEDS ORDERED: FURO40TA4 PO (06:53)
[2018-05-23] MEDS ORDERED: DEXT15LI15 PO (06:53)
[2018-05-23 07:06] LABS: BASOPHILS % (AUTO) 0.3 % (0-1); EOSINOPHILS # (AUTO) 0.1 X10'3 (0-0.9); EOSINOPHILS % (AUTO) 1.6 % (0-6); HEMATOCRIT 39.9 % (42.0-52.0); HEMOGLOBIN 13.3 g/dl (14.0-17.9); LYMPHOCYTES # (AUTO) 1.9 X10'3 (1.1-4.8); LYMPHOCYTES % (AUTO) 22.7 % (21-51); MEAN CORPUSCULAR HEMOGLOBIN 32.4 PG (27.0-31.0); MEAN CORPUSCULAR HGB CONC 33.3 % (33.0-36.5); MEAN CORPUSCULAR VOLUME 97.2 FL (78-98); MEAN PLATELET VOLUME 8.8 FL (7.4-10.4); NEUTROPHILS # (AUTO) 5.2 X10'3 (1.8-7.7); NEUTROPHILS % (AUTO) 63.4 % (42-75); PLATELET COUNT 313 X10'3 (140-440); RED CELL DISTRIBUTION WIDTH 17.5 % (11.5-14.5); WHITE BLOOD COUNT 8.2 X10'3 (4.5-11.0)
[2018-05-23 07:24] LABS: ALANINE AMINOTRANSFERASE 263 U/L (12-78); ALBUMIN 3.3 G/DL (3.4-5.0); ALBUMIN/GLOBULIN RATIO 1.2 (1.1-1.5); ALKALINE PHOSPHATASE 289 IU/L (46-116); ANION GAP 12 (8-16); ASPARTATE AMINO TRANSFERASE 138 U/L (10-37); BILIRUBIN,TOTAL 2.8 MG/DL (0.1-1.0); BLOOD UREA NITROGEN 42 MG/DL (7-18); BUN/CREATININE RATIO 19.1 (5.4-32.0); CALCIUM 8.7 MG/DL (8.5-10.1); CHLORIDE 102 MMOL/L (99-107); GLUCOSE 109 MG/DL (70-104); SODIUM 141 MMOL/L (135-145); TOTAL CARBON DIOXIDE 26.9 MMOL/L (24-32); TOTAL PROTEIN 6.1 G/DL (6.4-8.2); eGFR 31 ML/MIN
[2018-05-23 07:31] LABS: MAGNESIUM 2.1 MG/DL (1.5-2.4)
[2018-05-23] MEDS ORDERED: furosemide 10 MG/1 ML 10ml inj IV ONE (08:30)
[2018-05-23] MEDS ORDERED: cefepime 2g/NS 100ml ADVANTAGE 100 ML IV ONE (08:55)
[2018-05-23] MEDS ORDERED: levoFLOXACIN-Levaquin 750MG/D5 150 ML IV ONE (08:55)
[2018-05-23 09:08] LABS: INR 1.5 INR; PARTIAL THROMBOPLASTIN TIME 29 SECONDS (22-32); PROTHROMBIN TIME 15.5 SECONDS (9.0-12.0)
[2018-05-23] MEDS ORDERED: potassium Cl 40MEQ/NS 500ml 500 ML IV PRN ×2 (10:10)
[2018-05-23] MEDS ORDERED: magnesium 4gm in 100ml NS 100 ML IV PRN (10:10)
[2018-05-23] MEDS ORDERED: docusate sod 100mg capsule PO PRN (10:10)
[2018-05-23] MEDS ORDERED: potassium Cl 20 mEq SR tablet PO PRN (10:10)
[2018-05-23] MEDS ORDERED: DEXTROMETHORPHAN HBR PO PRN (10:10)
[2018-05-23] MEDS ORDERED: acetaminophen 325mg tablet PO PRN ×2 (10:10)
[2018-05-23] MEDS ORDERED: magnesium 1gm/100ml D5W IVPB 100 ML IV PRN (10:10)
[2018-05-23] MEDS ORDERED: magnesium Cl slow-release 64mg tablet PO PRN (10:10)
[2018-05-23] MEDS ORDERED: morphine 2 MG/ML inj. syringe IV PRN (10:10)
[2018-05-23] MEDS ORDERED: ondansetron/PF 4mg/2ml inj IV PRN (10:10)
[2018-05-23] MEDS: albuterol 2.5 MG/3 ML nebule NEB SCH ×2 (14:00→20:15)
[2018-05-23 15:45] VITALS: BP 96/62
[2018-05-23 18:00] VITALS: BP 89/59
[2018-05-23] MEDS ORDERED: furosemide 20MG tablet PO SCH (20:00)
[2018-05-23 20:06] VITALS: BP_SYST 89; BP_SYST 93; BP_DIAS 57; BP_DIAS 67
[2018-05-23 20:07] VITALS: BP 83/69
[2018-05-23 20:10] VITALS: BP 88/69
[2018-05-23] MEDS: apixaban 5mg tablet PO SCH (20:59)
[2018-05-23] MEDS: heparin, porcine 5000 units/ml vial SQ SCH (20:59)
[2018-05-23] MEDS ORDERED: temazepam 15mg capsule PO PRN (21:00)
[2018-05-23] MEDS: risperiDONE 0.5mg tablet PO SCH (21:00)
[2018-05-23 23:45] VITALS: BP 73/44
[2018-05-24] VITALS (10 sets, daily range): BP systolic 72–98; BP diastolic 50–66
[2018-05-24] MEDS: albuterol 2.5 MG/3 ML nebule NEB SCH ×4 (02:05→20:02)
[2018-05-24 06:19] LABS: BASOPHILS % (AUTO) 0.6 % (0-1); EOSINOPHILS # (AUTO) 0.1 X10'3 (0-0.9); EOSINOPHILS % (AUTO) 1.6 % (0-6); HEMATOCRIT 34.8 % (42.0-52.0); HEMOGLOBIN 11.4 g/dl (14.0-17.9); LYMPHOCYTES # (AUTO) 1.7 X10'3 (1.1-4.8); LYMPHOCYTES % (AUTO) 27.8 % (21-51); MEAN CORPUSCULAR HEMOGLOBIN 31.8 PG (27.0-31.0); MEAN CORPUSCULAR HGB CONC 32.7 % (33.0-36.5); MEAN CORPUSCULAR VOLUME 97.3 FL (78-98); MEAN PLATELET VOLUME 8.6 FL (7.4-10.4); MONOCYTES # (AUTO) 0.8 X10'3 (0-0.9); MONOCYTES % (AUTO) 12.3 % (2-12); NEUTROPHILS # (AUTO) 3.5 X10'3 (1.8-7.7); NEUTROPHILS % (AUTO) 57.7 % (42-75); PLATELET COUNT 281 X10'3 (140-440); RED BLOOD COUNT 3.57 X10'6 (4.70-6.10); RED CELL DISTRIBUTION WIDTH 17.7 % (11.5-14.5); WHITE BLOOD COUNT 6.2 X10'3 (4.5-11.0)
[2018-05-24 06:59] LABS: ALANINE AMINOTRANSFERASE 167 U/L (12-78); ALBUMIN 2.6 G/DL (3.4-5.0); ALKALINE PHOSPHATASE 224 IU/L (46-116); ANION GAP 9 (8-16); ASPARTATE AMINO TRANSFERASE 74 U/L (10-37); BILIRUBIN,TOTAL 2.3 MG/DL (0.1-1.0); BLOOD UREA NITROGEN 36 MG/DL (7-18); BUN/CREATININE RATIO 18.4 (5.4-32.0); CALCIUM 8.3 MG/DL (8.5-10.1); CHLORIDE 104 MMOL/L (99-107); CREATININE 1.96 MG/DL (0.60-1.10); GLUCOSE 83 MG/DL (70-104); POTASSIUM 3.3 MMOL/L (3.5-5.1); SODIUM 142 MMOL/L (135-145); TOTAL CARBON DIOXIDE 29.5 MMOL/L (24-32); TOTAL PROTEIN 5.1 G/DL (6.4-8.2); eGFR 35 ML/MIN
[2018-05-24 07:12] LABS: ANISOCYTOSIS 2+; HYPOCHROMASIA 1+; PLATELET ESTIMATE NORMAL; POLYCHROMASIA 1+; TARGET CELLS FEW
[2018-05-24] MEDS ORDERED: CefTRIAXone 2gm/D5W 50ml 50 ML IV SCH (08:00)
[2018-05-24] MEDS ORDERED: furosemide 40mg/4ml inj IV SCH (08:00)
[2018-05-24] MEDS: lisinopril 2.5mg tablet PO SCH (08:00)
[2018-05-24] MEDS ORDERED: carVEDilol 3.125mg tablet PO SCH (08:00)
[2018-05-24] MEDS: K and/or MAG REPLACEMENT MC SCH (08:00)
[2018-05-24] MEDS ORDERED: azithromycin/NS 500mg/250ml 250 ML IV SCH (08:00)
[2018-05-24] MEDS ORDERED: aspirin 81mg tablet.DR PO SCH (08:00)
[2018-05-24] MEDS ORDERED: non-formulary drug (Potassium Chloride 1 TAB) PO SCH (08:00)
[2018-05-24] MEDS: apixaban 5mg tablet PO SCH ×2 (08:28→19:07)
[2018-05-24] MEDS: folic acid 1mg tablet PO SCH (08:28)
[2018-05-24] MEDS: amiodarone 200mg tablet PO SCH (08:28)
[2018-05-24] MEDS: heparin, porcine 5000 units/ml vial SQ SCH (08:29)
[2018-05-24] MEDS: potassium Cl 20 mEq SR tablet PO PRN ×3 (08:30→16:59)
[2018-05-24] MEDS: LORazepam 0.5 MG tablet PO PRN ×2 (11:26→23:01)
[2018-05-24] MEDS: furosemide 20 MG/2 ML vial IV SCH ×2 (12:17→19:47)
[2018-05-24] MEDS ORDERED: carVEDilol 3.125mg tablet PO ONE (17:10)
[2018-05-24] MEDS: magnesium 1gm/100ml D5W IVPB 100 ML IV SCH ×2 (17:28→19:07)
[2018-05-24] MEDS ORDERED: tranexamic acid 100mg/ml inj. TP ONE (21:05)
[2018-05-24] MEDS ORDERED: phytonadione inj. 1 MG in normal saline 100ml IV soln 99.9 ML IV ONE (21:10)
[2018-05-24] MEDS ORDERED: tranexamic acid inj. 500 MG in normal saline 100ml IV soln 95 ML IV ONE (21:45)
[2018-05-24 22:19] LABS: BASOPHILS # (AUTO) 0.1 X10'3 (0-0.2); EOSINOPHILS # (AUTO) 0.1 X10'3 (0-0.9); EOSINOPHILS % (AUTO) 1.6 % (0-6); HEMATOCRIT 38.8 % (42.0-52.0); HEMOGLOBIN 12.7 g/dl (14.0-17.9); LYMPHOCYTES # (AUTO) 1.9 X10'3 (1.1-4.8); LYMPHOCYTES % (AUTO) 27.9 % (21-51); MEAN CORPUSCULAR HEMOGLOBIN 31.8 PG (27.0-31.0); MEAN CORPUSCULAR HGB CONC 32.8 % (33.0-36.5); MEAN CORPUSCULAR VOLUME 97.1 FL (78-98); MEAN PLATELET VOLUME 8.6 FL (7.4-10.4); MONOCYTES # (AUTO) 0.8 X10'3 (0-0.9); MONOCYTES % (AUTO) 11.2 % (2-12); NEUTROPHILS # (AUTO) 3.9 X10'3 (1.8-7.7); NEUTROPHILS % (AUTO) 58.3 % (42-75); PLATELET COUNT 300 X10'3 (140-440); RED CELL DISTRIBUTION WIDTH 17.9 % (11.5-14.5); WHITE BLOOD COUNT 6.8 X10'3 (4.5-11.0)
[2018-05-24] MEDS: risperiDONE 0.5mg tablet PO SCH (22:30)
[2018-05-24 22:31] LABS: INR 1.4 INR; PARTIAL THROMBOPLASTIN TIME 30 SECONDS (22-32); PROTHROMBIN TIME 14.6 SECONDS (9.0-12.0)
[2018-05-25] VITALS (7 sets, daily range): BP systolic 77–126; BP diastolic 52–104
[2018-05-25] MEDS: albuterol 2.5 MG/3 ML nebule NEB SCH ×4 (03:18→22:01)
[2018-05-25 05:08] LABS: BASOPHILS % (AUTO) 0.3 % (0-1); EOSINOPHILS # (AUTO) 0.1 X10'3 (0-0.9); EOSINOPHILS % (AUTO) 2.3 % (0-6); HEMATOCRIT 36.9 % (42.0-52.0); HEMOGLOBIN 12.2 g/dl (14.0-17.9); LYMPHOCYTES # (AUTO) 1.5 X10'3 (1.1-4.8); LYMPHOCYTES % (AUTO) 25.4 % (21-51); MEAN CORPUSCULAR HEMOGLOBIN 32.1 PG (27.0-31.0); MEAN CORPUSCULAR VOLUME 97.2 FL (78-98); MEAN PLATELET VOLUME 8.8 FL (7.4-10.4); MONOCYTES # (AUTO) 0.7 X10'3 (0-0.9); MONOCYTES % (AUTO) 12.2 % (2-12); NEUTROPHILS # (AUTO) 3.6 X10'3 (1.8-7.7); NEUTROPHILS % (AUTO) 59.8 % (42-75); PLATELET COUNT 266 X10'3 (140-440); RED CELL DISTRIBUTION WIDTH 17.5 % (11.5-14.5); WHITE BLOOD COUNT 6.1 X10'3 (4.5-11.0)
[2018-05-25 05:34] LABS: ALANINE AMINOTRANSFERASE 140 U/L (12-78); ALBUMIN 2.6 G/DL (3.4-5.0); ALKALINE PHOSPHATASE 229 IU/L (46-116); ANION GAP 8 (8-16); ASPARTATE AMINO TRANSFERASE 55 U/L (10-37); BILIRUBIN,TOTAL 1.7 MG/DL (0.1-1.0); BLOOD UREA NITROGEN 34 MG/DL (7-18); BUN/CREATININE RATIO 19.2 (5.4-32.0); CALCIUM 8.2 MG/DL (8.5-10.1); CHLORIDE 103 MMOL/L (99-107); CREATININE 1.77 MG/DL (0.60-1.10); GLUCOSE 98 MG/DL (70-104); MAGNESIUM 2.2 MG/DL (1.5-2.4); POTASSIUM 3.8 MMOL/L (3.5-5.1); SODIUM 139 MMOL/L (135-145); TOTAL CARBON DIOXIDE 27.6 MMOL/L (24-32); TOTAL PROTEIN 5.2 G/DL (6.4-8.2); eGFR 40 ML/MIN
[2018-05-25] MEDS: amiodarone 200mg tablet PO SCH (07:34)
[2018-05-25] MEDS: folic acid 1mg tablet PO SCH (07:34)
[2018-05-25] MEDS: K and/or MAG REPLACEMENT MC SCH (07:35)
[2018-05-25] MEDS: lisinopril 2.5mg tablet PO SCH (07:36)
[2018-05-25] MEDS ORDERED: carVEDilol 3.125mg tablet PO SCH (08:00)
[2018-05-25] MEDS: LORazepam 0.5 MG tablet PO PRN (11:30)
[2018-05-25] MEDS: benzocaine/menthol oral lozeng 1 EACH BOX MM PRN ×3 (13:30→21:59)
[2018-05-25] MEDS: HYDROcodone/acetaminophen 5mg/325mg tablet PO PRN ×2 (13:33→21:58)
[2018-05-25] MEDS ORDERED: benzocaine/menthol oral lozeng 1 EACH BOX MM ONE (13:55)
[2018-05-25] MEDS: risperiDONE 0.5mg tablet PO SCH (20:42)
[2018-05-25] MEDS: carVEDilol 3.125mg tablet PO SCH (20:42)
[2018-05-25] MEDS: clonazePAM 0.5mg tablet PO SCH (20:42)
[2018-05-26] MEDS: albuterol 2.5 MG/3 ML nebule NEB SCH ×4 (03:15→19:49)
[2018-05-26 05:29] LABS: BASOPHILS # (AUTO) 0.1 X10'3 (0-0.2); BASOPHILS % (AUTO) 0.8 % (0-1); EOSINOPHILS # (AUTO) 0.2 X10'3 (0-0.9); HEMATOCRIT 39.1 % (42.0-52.0); HEMOGLOBIN 12.7 g/dl (14.0-17.9); LYMPHOCYTES # (AUTO) 2.6 X10'3 (1.1-4.8); LYMPHOCYTES % (AUTO) 32.4 % (21-51); MEAN CORPUSCULAR HEMOGLOBIN 31.8 PG (27.0-31.0); MEAN CORPUSCULAR HGB CONC 32.5 % (33.0-36.5); MEAN CORPUSCULAR VOLUME 97.7 FL (78-98); MEAN PLATELET VOLUME 8.7 FL (7.4-10.4); MONOCYTES # (AUTO) 0.8 X10'3 (0-0.9); MONOCYTES % (AUTO) 10.3 % (2-12); NEUTROPHILS # (AUTO) 4.2 X10'3 (1.8-7.7); NEUTROPHILS % (AUTO) 53.5 % (42-75); PLATELET COUNT 278 X10'3 (140-440); RED CELL DISTRIBUTION WIDTH 17.5 % (11.5-14.5); WHITE BLOOD COUNT 7.9 X10'3 (4.5-11.0)
[2018-05-26 06:00] LABS: ALANINE AMINOTRANSFERASE 125 U/L (12-78); ALBUMIN 2.9 G/DL (3.4-5.0); ALKALINE PHOSPHATASE 245 IU/L (46-116); ANION GAP 9 (8-16); ASPARTATE AMINO TRANSFERASE 41 U/L (10-37); BILIRUBIN,TOTAL 1.6 MG/DL (0.1-1.0); BLOOD UREA NITROGEN 33 MG/DL (7-18); BUN/CREATININE RATIO 20.5 (5.4-32.0); CALCIUM 8.2 MG/DL (8.5-10.1); CHLORIDE 100 MMOL/L (99-107); CREATININE 1.61 MG/DL (0.60-1.10); GLUCOSE 100 MG/DL (70-104); MAGNESIUM 2.3 MG/DL (1.5-2.4); POTASSIUM 3.8 MMOL/L (3.5-5.1); SODIUM 139 MMOL/L (135-145); TOTAL CARBON DIOXIDE 30.2 MMOL/L (24-32); TOTAL PROTEIN 5.8 G/DL (6.4-8.2); eGFR 44 ML/MIN
[2018-05-26] MEDS: folic acid 1mg tablet PO SCH (07:21)
[2018-05-26] MEDS: clonazePAM 0.5mg tablet PO SCH (07:21)
[2018-05-26] MEDS: lisinopril 2.5mg tablet PO SCH (07:21)
[2018-05-26] MEDS: amiodarone 200mg tablet PO SCH (07:21)
[2018-05-26] MEDS: carVEDilol 3.125mg tablet PO SCH ×2 (07:22→20:43)
[2018-05-26 07:30] VITALS: BP_SYST 83; BP_SYST 86; BP_DIAS 59; BP_DIAS 65
[2018-05-26] MEDS: K and/or MAG REPLACEMENT MC SCH (08:00)
[2018-05-26] MEDS ORDERED: furosemide 20MG tablet PO SCH (08:00)
[2018-05-26] MEDS: LORazepam 0.5 MG tablet PO PRN (11:01)
[2018-05-26 12:32] VITALS: BP 90/66
[2018-05-26] MEDS: benzocaine/menthol oral lozeng 1 EACH BOX MM PRN ×3 (13:03→19:00)
[2018-05-26] MEDS: HYDROcodone/acetaminophen 5mg/325mg tablet PO PRN (18:02)
[2018-05-26 20:00] VITALS: BP 120/60
[2018-05-26] MEDS: furosemide 20MG tablet PO SCH (20:44)
[2018-05-26] MEDS: apixaban 5mg tablet PO SCH (20:44)
[2018-05-26] MEDS: clonazePAM 1mg tablet PO SCH (20:44)
[2018-05-26] MEDS: risperiDONE 0.5mg tablet PO SCH (20:46)
[2018-05-26 21:00] VITALS: BP_SYST 77; BP_SYST 89; BP_DIAS 53; BP_DIAS 70
[2018-05-27] VITALS: BP 93/43
[2018-05-27] MEDS: LORazepam 0.5 MG tablet PO PRN ×3 (02:10→22:09)
[2018-05-27] MEDS: albuterol 2.5 MG/3 ML nebule NEB SCH ×4 (02:23→20:53)
[2018-05-27 05:24] LABS: BASOPHILS % (AUTO) 0.4 % (0-1); EOSINOPHILS # (AUTO) 0.3 X10'3 (0-0.9); EOSINOPHILS % (AUTO) 3.6 % (0-6); HEMATOCRIT 36.8 % (42.0-52.0); HEMOGLOBIN 12.1 g/dl (14.0-17.9); LYMPHOCYTES # (AUTO) 1.9 X10'3 (1.1-4.8); LYMPHOCYTES % (AUTO) 24.9 % (21-51); MEAN CORPUSCULAR HGB CONC 32.9 % (33.0-36.5); MEAN CORPUSCULAR VOLUME 97.2 FL (78-98); MEAN PLATELET VOLUME 8.7 FL (7.4-10.4); MONOCYTES # (AUTO) 0.7 X10'3 (0-0.9); MONOCYTES % (AUTO) 9.5 % (2-12); NEUTROPHILS # (AUTO) 4.7 X10'3 (1.8-7.7); NEUTROPHILS % (AUTO) 61.6 % (42-75); PLATELET COUNT 252 X10'3 (140-440); RED BLOOD COUNT 3.78 X10'6 (4.70-6.10); RED CELL DISTRIBUTION WIDTH 17.6 % (11.5-14.5); WHITE BLOOD COUNT 7.6 X10'3 (4.5-11.0)
[2018-05-27 05:51] LABS: ALANINE AMINOTRANSFERASE 102 U/L (12-78); ALBUMIN 2.7 G/DL (3.4-5.0); ALKALINE PHOSPHATASE 211 IU/L (46-116); ANION GAP 8 (8-16); ASPARTATE AMINO TRANSFERASE 37 U/L (10-37); BILIRUBIN,TOTAL 1.5 MG/DL (0.1-1.0); BLOOD UREA NITROGEN 37 MG/DL (7-18); BUN/CREATININE RATIO 20.7 (5.4-32.0); CHLORIDE 100 MMOL/L (99-107); CREATININE 1.79 MG/DL (0.60-1.10); GLUCOSE 87 MG/DL (70-104); SODIUM 137 MMOL/L (135-145); TOTAL CARBON DIOXIDE 29.1 MMOL/L (24-32); TOTAL PROTEIN 5.4 G/DL (6.4-8.2); eGFR 39 ML/MIN
[2018-05-27 08:00] VITALS: BP 128/55
[2018-05-27] MEDS: K and/or MAG REPLACEMENT MC SCH (08:00)
[2018-05-27] MEDS: clonazePAM 1mg tablet PO SCH ×2 (08:01→19:48)
[2018-05-27] MEDS: folic acid 1mg tablet PO SCH (08:01)
[2018-05-27] MEDS: apixaban 5mg tablet PO SCH ×2 (08:01→19:48)
[2018-05-27] MEDS: amiodarone 200mg tablet PO SCH (08:01)
[2018-05-27] MEDS: lisinopril 2.5mg tablet PO SCH (08:01)
[2018-05-27] MEDS: benzocaine/menthol oral lozeng 1 EACH BOX MM PRN ×4 (08:06→22:08)
[2018-05-27] MEDS: carVEDilol 3.125mg tablet PO SCH ×2 (08:09→19:48)
[2018-05-27] MEDS: furosemide 20MG tablet PO SCH ×2 (08:10→19:52)
[2018-05-27] MEDS: HYDROcodone/acetaminophen 5mg/325mg tablet PO PRN ×2 (09:58→23:44)
[2018-05-27 12:11] VITALS: BP 111/57
[2018-05-27 18:00] VITALS: BP 99/68
[2018-05-27] MEDS: risperiDONE 0.5mg tablet PO SCH (20:00)
[2018-05-28] VITALS: BP 94/66
[2018-05-28] MEDS: albuterol 2.5 MG/3 ML nebule NEB SCH ×4 (03:35→19:57)
[2018-05-28] MEDS: benzocaine/menthol oral lozeng 1 EACH BOX MM PRN ×4 (04:39→20:28)
[2018-05-28] MEDS: HYDROcodone/acetaminophen 5mg/325mg tablet PO PRN (04:44)
[2018-05-28] MEDS: LORazepam 0.5 MG tablet PO PRN ×2 (04:47→10:00)
[2018-05-28 06:06] LABS: BASOPHILS % (AUTO) 0.6 % (0-1); EOSINOPHILS # (AUTO) 0.2 X10'3 (0-0.9); HEMOGLOBIN 11.9 g/dl (14.0-17.9); LYMPHOCYTES # (AUTO) 2.2 X10'3 (1.1-4.8); LYMPHOCYTES % (AUTO) 31.9 % (21-51); MEAN CORPUSCULAR HGB CONC 33.2 % (33.0-36.5); MEAN CORPUSCULAR VOLUME 96.4 FL (78-98); MEAN PLATELET VOLUME 8.6 FL (7.4-10.4); MONOCYTES # (AUTO) 0.7 X10'3 (0-0.9); NEUTROPHILS # (AUTO) 3.8 X10'3 (1.8-7.7); NEUTROPHILS % (AUTO) 54.5 % (42-75); PLATELET COUNT 245 X10'3 (140-440); RED BLOOD COUNT 3.73 X10'6 (4.70-6.10); RED CELL DISTRIBUTION WIDTH 17.1 % (11.5-14.5)
[2018-05-28 06:20] LABS: ALANINE AMINOTRANSFERASE 93 U/L (12-78); ALBUMIN 2.8 G/DL (3.4-5.0); ALKALINE PHOSPHATASE 249 IU/L (46-116); ANION GAP 9 (8-16); ASPARTATE AMINO TRANSFERASE 35 U/L (10-37); BILIRUBIN,TOTAL 1.2 MG/DL (0.1-1.0); BLOOD UREA NITROGEN 45 MG/DL (7-18); BUN/CREATININE RATIO 27.4 (5.4-32.0); CALCIUM 8.2 MG/DL (8.5-10.1); CHLORIDE 100 MMOL/L (99-107); CREATININE 1.64 MG/DL (0.60-1.10); GLUCOSE 91 MG/DL (70-104); POTASSIUM 4.1 MMOL/L (3.5-5.1); SODIUM 137 MMOL/L (135-145); TOTAL CARBON DIOXIDE 28.4 MMOL/L (24-32); TOTAL PROTEIN 5.6 G/DL (6.4-8.2); eGFR 43 ML/MIN
[2018-05-28] MEDS: amiodarone 200mg tablet PO SCH (07:58)
[2018-05-28] MEDS: lisinopril 2.5mg tablet PO SCH (07:58)
[2018-05-28] MEDS: apixaban 5mg tablet PO SCH ×2 (07:58→20:22)
[2018-05-28] MEDS: folic acid 1mg tablet PO SCH (07:58)
[2018-05-28] MEDS: clonazePAM 1mg tablet PO SCH ×2 (07:58→20:00)
[2018-05-28] MEDS: furosemide 20MG tablet PO SCH ×2 (07:58→20:00)
[2018-05-28] MEDS: carVEDilol 3.125mg tablet PO SCH ×2 (07:59→20:00)
[2018-05-28 08:00] VITALS: BP 80/52
[2018-05-28] MEDS: K and/or MAG REPLACEMENT MC SCH (08:00)
[2018-05-28] MEDS: clindamycin 300mg/D5W 50mL 50 ML IV SCH ×3 (11:32→20:21)
[2018-05-28 12:00] VITALS: BP 80/59
[2018-05-28] MEDS: CefTRIAXone/D5W-Rocephin 1gm 50 ML IV SCH (12:42)
[2018-05-28 13:31] VITALS: BP_SYST 79; BP_SYST 85; BP_SYST 96; BP_DIAS 43; BP_DIAS 58; BP_DIAS 59
[2018-05-28 20:00] VITALS: BP_SYST 76; BP_SYST 87; BP_SYST 88; BP_DIAS 49; BP_DIAS 57; BP_DIAS 59
[2018-05-28] MEDS: risperiDONE 0.5mg tablet PO SCH (20:22)
[2018-05-28 21:30] VITALS: BP 79/56
[2018-05-29] VITALS: BP 81/58
[2018-05-29] MEDS: LORazepam 0.5 MG tablet PO PRN (00:23)
[2018-05-29] MEDS: clindamycin 300mg/D5W 50mL 50 ML IV SCH (02:58)
[2018-05-29] MEDS: albuterol 2.5 MG/3 ML nebule NEB SCH ×2 (03:31→07:26)
[2018-05-29 08:08] VITALS: BP 82/56
[2018-05-29] MEDS: CefTRIAXone/D5W-Rocephin 1gm 50 ML IV SCH (08:30)
[2018-05-29] MEDS: clonazePAM 1mg tablet PO SCH (08:46)
[2018-05-29] MEDS: HYDROcodone/acetaminophen 5mg/325mg tablet PO PRN (08:48)
== END 2018-05-29 09:15 | disposition left against medical advice (07) | DRG 469 ==
LOC: ER 06:45 → ED HOLD 10:10 → SUR 3N 15:31
PROVIDERS: ADMIT Internal Medicine; ATTEND Internal Medicine
DX: N17.9 Acute kidney failure, unspecified (principal); J69.0 Pneumonitis due to inhalation of food and vomit; I50.23 Acute on chronic systolic (congestive) heart failure; L89.152 Pressure ulcer of sacral region, stage 2; I95.9 Hypotension, unspecified; I42.7 Cardiomyopathy due to drug and external agent; I07.1 Rheumatic tricuspid insufficiency; I48.0 Paroxysmal atrial fibrillation; N18.3 Chronic kidney disease, stage 3 (moderate); F41.1 Generalized anxiety disorder; J44.9 Chronic obstructive pulmonary disease, unspecified; B95.2 Enterococcus as the cause of diseases classified elsewhere; T43.625A Adverse effect of amphetamines, initial encounter; Z53.21 Procedure and treatment not carried out due to patient leaving prior to being seen by health care provider; F15.10 Other stimulant abuse, uncomplicated; I25.10 Atherosclerotic heart disease of native coronary artery without angina pectoris; Z86.711 Personal history of pulmonary embolism; Z87.891 Personal history of nicotine dependence; Z91.19 Patient's noncompliance with other medical treatment and regimen; Z86.718 Personal history of other venous thrombosis and embolism; Y92.89 Other specified places as the place of occurrence of the external cause; Z79.01 Long term (current) use of anticoagulants; Z71.51 Drug abuse counseling and surveillance of drug abuser
CPT/HCPCS: 36415; 71045; 74176; 80053; 83605; 83735; 83880; 84100; 84145; 84484; 85025; 85610; 85730; 87040; 87070; 87077; 87186; 93005; 93308; 94640; 94760; 96365; 96375; 97110; 97116; 97161; 97530; 99285; A6212; J0456; J0692; J0696; J1644; J1940; J1956; J3430; J7030; X5958